=== PATIENT | female | born 1975 | race Caucasian/White ===

== ENCOUNTER 2020-06-01 12:36 | Outpatient (CLI) | payer BC | END 2020-06-01 12:37 | disposition home or self-care (01) | LOC: DTY/OP 12:36 | PROVIDERS: ATTEND Surgery | DX: E66.01 Morbid (severe) obesity due to excess calories (principal) | CPT/HCPCS: 97802 ==

== ENCOUNTER 2020-08-15 06:34 | Outpatient (CLI) | payer BC ==
[2020-08-15 12:07] LABS: #Basophils 0.1 10x3/uL (0.0-0.2); #Eosinphils 0.2 10x3/uL (0.0-0.5); #Monocytes 0.5 10x3/uL (0.0-1.1); #Neutrophils 2.4 10x3/uL (1.5-8.4); %Basophils 1.3 % (0.0-2.0); %Lymphocytes 18.1 % (18.0-47.0); %Monocytes 12.3 % (0.0-10.0); Hemoglobin 13.7 g/dL (12.0-16.0); Mean Corpuscular HGB CONC 31.9 G/DL (32.0-36.0); Mean Corpuscular Hemoglobin 30.1 PG (27.0-33.0); Mean Corpuscular Volume 94.3 fl (80.0-100.0); Mean Platelet Volume 10.3 fl (7.4-10.4); Platelet Count 311 10x3/uL (130-400); Red Blood Cell (RBC) Count 4.55 10x6/uL (3.90-5.20); White Blood Cell (WBC) Count 3.8 10x3/uL (4.5-11.0)
[2020-08-15 12:26] LABS: ALT (SGPT) 17 U/L (8-55); AST (SGOT) 22 U/L (5-34); Albumin 4.8 g/dL (3.5-5.0); Alkaline Phosphatase 73 U/L (40-110); Anion Gap 15 mmol/L (10-20); BUN (Urea Nitrogen) 17 mg/dL (7.0-18.7); Bilirubin, Total 0.4 mg/dL (0.2-1.2); Calc. Creatinine Clearance 0 mL/min (70-130); Calcium 9.7 mg/dL (7.8-10.44); Carbon Dioxide 24 mmol/L (22-29); Chloride 104 mmol/L (98-107); Globulin 2.3 g/dL (2.4-3.5); Glucose 80 mg/dL (70-105); Protein, Total 7.1 g/dL (6.0-8.3); Sodium 139 mmol/L (136-145)
[2020-08-16 06:30] LABS: SARS-CoV-2 MS2 Positive; SARS-CoV-2 N Gene Negative; SARS-CoV-2 S Gene Negative; SARS-CoV-2 by NAA Not Detected (NotDetected); SARS-CoV-2 orf1ab Negative
== END 2020-08-15 06:35 | disposition home or self-care (01) ==
LOC: LABBT 06:34
PROVIDERS: ATTEND Surgery
DX: Z01.818 Encounter for other preprocedural examination (principal); E66.01 Morbid (severe) obesity due to excess calories; Z20.828 Contact with and (suspected) exposure to other viral communicable diseases
CPT/HCPCS: 80053; 83036; 85025; 87635; U0003

== ENCOUNTER 2020-08-15 11:15 | Inpatient (IN) | payer BC ==
[2020-08-16 15:57] VITALS: BMI 37.5
[2020-08-17] MEDS ORDERED: Heparin 5,000 UNITS/ML VIAL ONE (10:16)
--- NOTE | 2020-08-17 10:26 | RAD ---
EXAM: Chest 2 views: HISTORY: Preoperative radiograph COMPARISON: None. FINDINGS: There is a normal-sized cardiomediastinal silhouette. There is no evidence of consolidation, mass, or pleural effusion. No acute osseous abnormality. IMPRESSION: No evidence of acute cardiopulmonary disease
[2020-08-17] MEDS ORDERED: Lidocaine 1% PF 5 ML VIAL ONE (10:37)
[2020-08-17] MEDS ORDERED: PROPOFOL 200 MG/20 ML VIAL ONE (10:37)
[2020-08-17] MEDS ORDERED: Glycopyrrolate 0.2 MG/ML 5 ML SYRINGE ONE (10:37)
[2020-08-17] MEDS ORDERED: Rocuronium Bromide 10 MG/ML (10ML VIAL) ONE (10:37)
[2020-08-17] MEDS ORDERED: Dexamethasone 20 MG/5 ML VIAL ONE (10:37)
[2020-08-17] MEDS ORDERED: Ondansetron PF 4 MG/2 ML Vial ONE (10:37)
[2020-08-17] MEDS ORDERED: Ketorolac Tromethamine 30 MG/ML VIAL ONE (10:37)
[2020-08-17] MEDS ORDERED: Midazolam HCl 2 mg/2 ml Vial ONE ×2 (11:44→11:51)
[2020-08-17] MEDS ORDERED: Bupivacaine 0.25% HCL 30 ML VIAL ONE (11:50)
[2020-08-17] MEDS ORDERED: Lidocaine 1% w/Epinephrine 1:100K 20 ML VIAL ONE (11:50)
[2020-08-17] MEDS ORDERED: Fentanyl 100 MCG/2 ML VIAL ONE ×4 (11:51→14:21)
[2020-08-17] MEDS ORDERED: SUGAMMADEX SODIUM 500 MG/5 ML VIAL ONE (12:06)
[2020-08-17] MEDS ORDERED: Meperidine HCl/PF 25 MG/ML VIAL ONE (13:36)
[2020-08-17] MEDS ORDERED: Ondansetron HCl/PF 4 MG/2 ML Vial IVP PRN (13:39)
[2020-08-17] MEDS ORDERED: Promethazine HCl 25 MG/ML VIAL SLOW IVP PRN (13:39)
[2020-08-17] MEDS ORDERED: Promethazine HCl 25 MG/ML VIAL IM PRN ×2 (13:39→14:21)
[2020-08-17] MEDS ORDERED: HYDROmorphone 2 MG/ML VIAL SLOW IVP PRN (13:39)
[2020-08-17] MEDS ORDERED: HYDROmorphone 2 MG/ML VIAL ONE (14:08)
[2020-08-17] MEDS ORDERED: hydrALAZINE 20 MG/ML VIAL SLOW IVP PRN (14:21)
[2020-08-17] MEDS ORDERED: Dextrose 5% in Water 1,000 ML IV PRN (14:21)
[2020-08-17] MEDS ORDERED: Ondansetron PF 4 MG/2 ML Vial IVP PRN (14:21)
[2020-08-17] MEDS ORDERED: Dextrose 50% Abboject 50 ML SYRINGE SLOW IVP PRN (14:21)
[2020-08-17] MEDS ORDERED: Hydrocodone-Acetamin 15 ML UDCUP PO PRN (14:21)
[2020-08-17] MEDS ORDERED: diphenhydrAMINE 50 MG/ML VIAL IVP PRN ×2 (14:21→14:43)
[2020-08-17] MEDS ORDERED: HYDROmorphone 10 mg/100 ml CADD IVPB PRN (14:43)
[2020-08-17] MEDS ORDERED: diphenhydrAMINE 50 MG/ML VIAL IM PRN (14:43)
[2020-08-17] MEDS ORDERED: diphenhydrAMINE 25 MG CAP PO PRN (14:43)
[2020-08-17] MEDS ORDERED: Naloxone HCl 0.4 mg/ml Vial IV PRN (14:43)
[2020-08-17] MEDS ORDERED: Zolpidem Tartrate 5 MG TAB PO PRN (14:43)
[2020-08-17] MEDS ORDERED: Communication Order-Pharmacy FS SCH (14:45)
[2020-08-17] MEDS ORDERED: diphenhydrAMINE 50 MG/ML VIAL ONE (16:16)
--- NOTE | 2020-08-17 16:32 | OP ---
DATE OF PROCEDURE: 08/17/2020 PREOPERATIVE DIAGNOSIS: Morbid obesity with a body mass index of 40. POSTOPERATIVE DIAGNOSIS: Morbid obesity with a body mass index of 40. PROCEDURE PERFORMED: Laparoscopic sleeve gastrectomy with Ethicon staple line reinforcement, 38-[place] bougie. ANESTHESIA: General. ESTIMATED BLOOD LOSS: Minimal. COMPLICATIONS: None. SPECIMEN: Stomach. FINDINGS: Normal EGD. TECHNIQUE: The patient was taken to the operating room and laid supine on the operating room table. After general anesthetic was obtained, the arms and legs were double strapped to bariatric table. The abdomen was shaved, prepped, and draped in a sterile fashion. Left subcostal 5-mm Optiview trocar placed in usual fashion, high-flow pneumoperitoneum was obtained. Left and right abdominal 12 mm ports as well as a right subcostal 5-mm port were placed under direct visualization. 5 mm incision was made at the xiphoid and the [place] was used to raise the liver off the GE junction. Short gastrics were taken down from a distance of 6 cm proximal to the pylorus, all the way up to the left suleiman of the diaphragm. Left suleiman, posterior fundus, angle of His were completely dissected. OG tube was removed and 38 bougie was brought in, tip left in the antrum of the stomach. Multiple loads of [place] stapling device with Ethicon staple line reinforcements used to perform the sleeve. The first was fired up at the distance of 6 cm proximal to the pylorus, angled up towards the incisura. Multiple loads were then fired up along the bougie. Stomach was completely transected at the angle of His. The stomach was removed from left abdominal incision. This fascial defect was closed using a GraNee needle, Vicryl tie. EGD scope was passed through esophagus, stomach, to the level of duodenum without obstruction. There was no stricture at the incisura. EGD scope was used to decompress stomach, it was pulled and removed. The Chely retractor was removed under direct visualization without bleeding. All port sites were removed under direct visualization without bleeding. Pneumoperitoneum was let down. 4-0 Monocryl and Dermabond closed all skin incisions. The patient was en route to Recovery in stable condition. All instrument counts, needle counts, and lap counts were correct. Job ID: [id number]
[2020-08-17] MEDS: D5 1/2 NS w/20 mEq KCL 1,000 ML IV SCH ×2 (20:33→22:31)
[2020-08-17] MEDS ORDERED: FLUoxetine HCl 20 MG CAP PO SCH (21:00)
[2020-08-17] MEDS ORDERED: clonazePAM 0.5 MG TAB PO SCH (21:00)
[2020-08-17] MEDS: Ondansetron PF 4 MG/2 ML Vial IVP PRN (22:35)
[2020-08-17] MEDS: Promethazine HCl 25 MG/ML VIAL IM PRN (23:06)
[2020-08-18] MEDS: D5 1/2 NS w/20 mEq KCL 1,000 ML IV SCH ×2 (03:17→10:10)
[2020-08-18 06:02] LABS: #Lymphocytes 0.5 thou/uL (1.20-3.40); #Monocytes 0.5 thou/uL (0.11-0.59); #Neutrophils 7.7 thou/uL (1.40-6.50); %Basophils 0.4 % (0.0-1.0); %Eosinophils 0.2 % (0.0-10.0); %Lymphocytes 5.4 % (21.0-51.0); %Monocytes 6.1 % (0.0-10.0); %Neutrophils 87.9 % (42.0-75.0); Hemoglobin 12.7 g/dL (12.0-16.0); Mean Corpuscular HGB CONC 33.2 g/dL (32.0-36.0); Mean Corpuscular Hemoglobin 31.5 pg (27.0-31.0); Mean Corpuscular Volume 94.9 fL (78.0-98.0); Mean Platelet Volume 8.4 fL (7.4-10.4); Platelet Count 270 thou/uL (130-400); RBC Distribution Width 11.2 % (11.5-14.5); Red Blood Cell (RBC) Count 4.03 mill/uL (4.20-5.40); White Blood Cell (WBC) Count 8.7 thou/uL (4.8-10.8)
[2020-08-18 06:22] LABS: Anion Gap 11 mmol/L (10-20); BUN (Urea Nitrogen) 8 mg/dL (7.0-18.7); Calc. Creatinine Clearance 162 mL/min (70-130); Calcium 8.6 mg/dL (7.8-10.44); Carbon Dioxide 26 mmol/L (22-29); Chloride 103 mmol/L (98-107); Glucose 107 mg/dL (70-105); Potassium 4.3 mmol/L (3.5-5.1); Sodium 136 mmol/L (136-145)
[2020-08-18] MEDS ORDERED: traMADol HCl 50 MG TAB PO PRN ×2 (08:00)
[2020-08-18] MEDS ORDERED: Pantoprazole 40 MG VIAL IVP SCH (09:00)
[2020-08-18] MEDS ORDERED: buPROPion 75 MG TAB PO SCH (09:00)
--- NOTE | 2020-08-18 09:40 | PDOC.GSPN ---
Surgery Progress Note: Subj - Subjective Narrative: Ms. Foster is a 45 year old female who is one day s/p sleeve gastrectomy. She complains of ongoing nausea despite her anti-emetics and mild abdominal soreness. However, she has been able to eat a clear liquid diet with no vomiting. She will monitor when she feels the nausea to determine if it is related to eating too much at one time. She is drinking plenty of fluids. She has been able to ambulate without difficulty. Denies any fever, chills, vomiting, SOB, chest pain, dysuria. Surgery Progress Note: Obj - Vital signs Vital signs: Vital Signs - Most Recent Temp Pulse Resp BP Pulse Ox 98.1 F 67 14 137/75 92 L 08/18/20 08:00 08/18/20 08:00 08/18/20 08:00 08/18/20 08:00 08/18/20 08:00 - Physical Exam General: no distress, well developed, well nourished Cardiovascular: regular rate and rhythm, no murmur Respiratory: clear to auscultation Abdomen: soft, positive bowel sounds, appropriately tender Wound: dressing clean,dry,intact (5 port site incisions healing well with mild surrounding bruising) Surgery Progress Note: Results - Labs Result Diagrams: 08/18/20 05:12 08/18/20 05:12 Lab results: Laboratory Results - last 12 hr 08/18/20 08/18/20 05:12 05:12 WBC 8.7 RBC 4.03 L Hgb 12.7 Hct 38.3 MCV 94.9 MCH 31.5 H MCHC 33.2 RDW 11.2 L Plt Count 270 MPV 8.4 Neutrophils % 87.9 H Lymphocytes % 5.4 L Monocytes % 6.1 Eosinophils % 0.2 Basophils % 0.4 Neutrophils # 7.7 H Lymphocytes # 0.5 L Monocytes # 0.5 Eosinophils # 0.0 Basophils # 0.0 Sodium 136 Potassium 4.3 Chloride 103 Carbon Dioxide 26 Anion Gap 11 BUN 8 Creatinine 0.73 Estimated GFR (MDRD) 86 Glucose 107 H Calcium 8.6 Surgery Progress Note: A/P - Plan Plan: s/p sleeve gastrectomy: Patient is tolerating liquid diet and fluid intake well, although she has some mild persistent nausea. She is ambulating without difficulty. Will discharge patient home today with pain regime and anti-emetics and have her follow up in the office in 2 weeks.
[2020-08-18] MEDS: Ondansetron PF 4 MG/2 ML Vial IVP PRN (10:10)
[2020-08-18] MEDS: Promethazine HCl 25 MG/ML VIAL IM PRN (10:54)
[2020-08-18 11:47] VITALS: BP 138/84; TEMP 97.4
== END 2020-08-18 15:45 | disposition home or self-care (01) | DRG 621 ==
LOC: SURG A 08-17 08:35 → UNDODISIN 08-17 13:27 → SURG B 08-17 21:02
PROVIDERS: ADMIT Surgery; ATTEND Surgery
PROC: 0DB64Z3 Excision of Stomach, Percutaneous Endoscopic Approach, Vertical (ICD-10-PCS; principal; 2020-08-17)
DX: E66.01 Morbid (severe) obesity due to excess calories (principal); Z20.828 Contact with and (suspected) exposure to other viral communicable diseases; G35 Multiple sclerosis; F32.9 Major depressive disorder, single episode, unspecified; Z87.891 Personal history of nicotine dependence; Z90.710 Acquired absence of both cervix and uterus; Z79.899 Other long term (current) drug therapy; Z68.41 Body mass index [BMI] 40.0-44.9, adult
CPT/HCPCS: 36415; 71046; 80048; 80053; 83036; 85025; 87635; 88307; 88312; C9113; J0690; J1100; J1170; J1200; J1644; J1885; J2175; J2250; J2405; J2550; J2704; J3010; J3480; Q0163; S0020; U0003